=== PATIENT | female | born 1950 | race Caucasian/White ===

== ENCOUNTER 2018-06-15 06:27 | Day surgery (SDC) | payer MEDICARE, BC ==
--- NOTE | 2018-06-06 21:35 | HP ---
PREOPERATIVE HISTORY AND PHYSICAL: DATE OF SURGERY/ADMISSION: 06/15/18 DATE OF OFFICE VISIT/ENCOUNTER: 05/19/18 ATTENDING SURGEON: Kat Barron MD * (DICTATED BY UMESH LEMUS) PROCEDURE: Trigger finger release, right long finger. CHIEF COMPLAINT: Triggering of right long finger. HISTORY OF PRESENT ILLNESS: This is a 67-year-old female who has had a trigger finger of the right middle finger for quite some time. She has had several injections done over the years. She would like to proceed with more definitive treatment now and has consented to proceed with surgery. There was no specific injury. She denies numbness, tingling. PAST MEDICAL HISTORY: 1. GERD. 2. Hypercholesterolemia. PAST SURGICAL HISTORY: 1. Hernia repair. 2. Cholecystectomy. 3. Hysterectomy. 4. Breast lumpectomy. 5. Jain's neurectomy. CURRENT MEDICATIONS: 1. Acyclovir as directed. 2. Fiber 625 mg daily. 3. Glucosamine chondroitin 1 pill daily. 4. Multivitamins with iron. 5. Omeprazole 20 mg daily. 6. Simvastatin 20 mg daily. 7. Vitamin B12 CR 1000 mcg daily. ALLERGIES: No known drug allergies. FAMILY MEDICAL HISTORY: Lung cancer. 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 She is a former smoker. She quit approximately 40 years ago. Prior to that, she smoked a pack per day for approximately 10 years. She denies recreational drug use. She drinks alcohol on occasion. REVIEW OF SYSTEMS: Negative for general, cephalic, cardiovascular, respiratory , GI, , other musculoskeletal, integumentary, endocrine, neurologic, and hematologic symptoms. Infectious Disease is negative for MRSA, hepatitis C, and HIV. PHYSICAL EXAMINATION GENERAL: Well-developed, well-nourished 67-year-old female, in no acute distress. VITAL SIGNS: Height 5 feet 2 inches, weight 171 pounds, pulse rate 94, blood pressure 180/92. HEENT: Normocephalic, atraumatic. Pupils are equal, round, and reactive to light and accommodation. Extraocular movements are intact. Throat is clear. NECK: Supple. There are no palpable lymph nodes. PULMONARY: Lungs are clear to auscultation bilaterally. No wheezes, rales, or rhonchi. CARDIOVASCULAR: Regular rate and rhythm. S1, S2. No murmurs, rubs, or gallops. No edema. ABDOMEN: Positive bowel sounds. Soft, nontender. MUSCULOSKELETAL: On exam of her right hand, there is no visible swelling. She has tenderness to palpation at the A1 carlos a of the right middle finger. She is unable to fully flex the right middle finger and she lacks a little bit of extension of the fingers well. NEUROLOGICAL: Alert and oriented x3. Cranial nerves II through XII are intact. Sensation is intact to light touch. Skin is intact. Neurovascular function is intact. IMPRESSION: Right middle finger, trigger finger. PLAN: The patient is scheduled to undergo a trigger finger release of the right long finger with Dr. Barron on 06/15/18. She will return to the office 10 days postop for followup and suture removal. A prescription for Ultracet was e- scribed to the patient's pharmacy for postoperative pain management. UMESH LEMUS [id number] #: [id number] LANNY
[~2018-06-15 06:27] MED LIST: Buffered Lidocaine 0.9% SYRIN* 5 ML/SYR SYRINGE INTRADERM ONE; Dexamethasone TAB* 4 MG ONE; Dexamethasone TAB* 4 MG PO ONE; DiMENhydriNATE IV* 50 MG/ML VIAL IV PUSH PRN; Famotidine IV* 10 MG/ML 2 ML (20 mg) IV ONE; Famotidine IV* 10 MG/ML 2 ML (20 mg) ONE; Naloxone* 0.4 MG/ML 1 ML VIAL IV PRN; Ondansetron ODT TAB* 4 MG ONE; Ondansetron TAB* 4 MG PO ONE; PROCHLORPERAZINE INJ 5 MG/ML 2 ML VIAL IV PRN; fentaNYL* 50 MCG/ML 2 ML VIAL (100 MCG VIAL) IV PRN; oxyCODONE/Acetamin 5/325 MG* TAB PO PRN
[2018-06-15] MEDS ORDERED: KETAMINE HCL* 50 MG/ML 10 ML VIAL ONE (07:10)
[2018-06-15] MEDS ORDERED: fentaNYL* 50 MCG/ML 2 ML VIAL (100 MCG VIAL) ONE (07:10)
[2018-06-15] MEDS ORDERED: Midazolam* 1 MG/ML 2 ML VIAL (2 MG) ONE (07:11)
[2018-06-15] MEDS ORDERED: Lidocaine 1% INJ* 10 MG/ML 30 ML SDV ONE (07:25)
[2018-06-15] MEDS ORDERED: Labetalol IV* 5 MG/ML 20 ML VIAL ONE (07:39)
[2018-06-15] MEDS ORDERED: Propofol* 10 MG/ML 20 ML BTL ONE (07:39)
[2018-06-15 08:07] VITALS: BP 108/65
--- NOTE | 2018-06-15 15:35 | OP ---
DATE OF OPERATION: 06/15/18 [facility] DATE OF : 46 SURGEON: Kat Barron MD TOY MAKER: UMESH Martel ANESTHESIA: Local MAC. PRE-OP DIAGNOSIS: Right long finger trigger finger. POST-OP DIAGNOSIS: Right long finger trigger finger. OPERATIVE PROCEDURE: Right long finger trigger release. INDICATIONS: Rocio is a 67-year-old female with locking, triggering, and stiffness of her right long finger. She presents for trigger finger release. ESTIMATED BLOOD LOSS: Zero. TOURNIQUET TIME: Approximately 5 minutes. DESCRIPTION OF PROCEDURE: The patient was brought to the operating room, was given a sedation anesthetic and a local infiltration of 10 cc of 1% plain lidocaine in the palm of her right hand. Skin of her right hand and forearm was prepped and draped in the usual sterile fashion. The hand and forearm were exsanguinated and the tourniquet elevated to 250 mmHg. A transverse incision was made centered over the A1 carlos a of the right middle finger. We dissected bluntly through the subcutaneous tissue down to the A1 carlos a. The carlos a was incised longitudinally completely releasing the flexor tendons, which were in good condition. The wound was irrigated and the skin edges reapproximated with 4-0 nylon suture. The wound was dressed with Xeroform, 4x4, Webril, and an Trevor wrap. The patient tolerated the procedure well and was brought to the recovery room in good condition. [id number]/CPS #: [id number] MTDD
== END 2018-06-15 08:35 | disposition home or self-care (01) ==
LOC: OREAST 06:27
PROVIDERS: ATTEND Orthopaedic Surgery
DX: M65.331 Trigger finger, right middle finger (principal); Z87.891 Personal history of nicotine dependence; K21.9 Gastro-esophageal reflux disease without esophagitis; E78.00 Pure hypercholesterolemia, unspecified
CPT/HCPCS: A9270-GY; J2250; J2704; J3010; J8540